=== PATIENT | female | born 1965 ===

== ENCOUNTER 2020-09-09 09:10 | Outpatient (CLI) | payer BC, SELFPAY ==
--- NOTE | 2020-09-09 09:13 | MM_ITS ---
WS: [id number] Since BILATERAL DIGITAL SCREENING MAMMOGRAPHY WITH CAD CLINICAL INFORMATION: SCREENING HISTORY: Screening mammogram. No current complaints. COMPARISON: TECHNIQUE: Bilateral CC and MLO views. FINDINGS: Scattered fibroglandular densities bilaterally. Pleomorphic calcifications middle third outer left br east adjacent to the biopsy marker. Calcifications have increased in number compared to 2019. Recomme nd additional spot magnification views for better detail. Prior biopsy demonstrated papilloma. No other significant changes. Right breast is unchanged in appearance. MM/[place] [id number] IMPRESSION: BI-RADS: 0-Incomplete: Need additional imaging evaluation FOLLOW UP: Need Additional Imaging
== END 2020-09-09 09:11 | disposition home or self-care (01) ==
LOC: RADSHAW 09:12
PROVIDERS: PCP Internal Medicine; Visit Provider Internal Medicine
DX: Z12.31 Encounter for screening mammogram for malignant neoplasm of breast (principal)
CPT/HCPCS: 77067

== ENCOUNTER 2020-09-29 09:42 | Outpatient (CLI) | payer BC, SELFPAY ==
--- NOTE | 2020-09-29 09:49 | MM_ITS ---
WS: [id number] LEFT DIGITAL MAMMOGRAPHY WITH CAD CLINICAL INFORMATION: INCONCLUSIVE MAMMO COMPARISON: September 09, 2020 TECHNIQUE: 3 views of the left breast were obtained. FINDINGS: Scattered fibroglandular densities of the left breast. Again seen are the pleomorphic calcifications in the middle third outer left breast adjacent to the biopsy marker. Calcifications increased since 2 019. Significant increase in the heterogeneous calcifications adjacent to the biopsy cavity. These garcia ve a suspicious appearance and increased since 2019. Recommend further evaluation with stereotactic guided biopsy.. MM/[place] [id number] IMPRESSION: BI-RADS: 4-Suspicious Finding-Biopsy Should Be Considered FOLLOW UP: Stereotactic Biopsy Recommended Increase in the heterogeneous calcifications adjacent the biopsy cavity since 2 019. These are indeterminant and Recommend further evaluation with stereotactic guided biopsy.
== END 2020-09-29 09:43 | disposition home or self-care (01) ==
LOC: RADSHAW 09:44
PROVIDERS: PCP Internal Medicine; Visit Provider Internal Medicine
DX: R92.2 Inconclusive mammogram (principal); R92.1 Mammographic calcification found on diagnostic imaging of breast
CPT/HCPCS: 77065

== ENCOUNTER 2020-10-14 11:57 | Outpatient (CLI) | payer BC, SELFPAY ==
--- NOTE | 2020-10-14 12:01 | MM_ITS ---
WS: [id number] STEREOTACTIC LEFT BREAST BIOPSY WITH VACUUM ASSISTANCE HISTORY: INCONCLUSIVE MAMMOGRAM, calcifications and soft tissue thickening. COMPARISON: 09/29/2020, 09/09/2020 and 12/25/2018 Procedure, risks and complications were explained to the patient. Medications and prior radiographs a re reviewed. LEFT breast calcifications and soft tissue thickening are located. Calcifications are targeted in the craniocaudal projection. The skin is cleansed with ChloraPrep and anesthetized with 1% buffered lido keshawn. Deeper soft tissues anesthetized with a combination of lidocaine and epinephrine. Small dermat ome is made. Needle advanced into the LEFT breast. Stereotactic imaging reveals appropriate positioni ng adjacent calcifications. Multiple vacuum-assisted core biopsies are obtained. No complications wer e encountered. Post biopsy specimen radiograph reveals numerous calcifications. Biopsy clip is placed in the cavity. Post imaging reveals good placement of the clip. No migration. Pressures held for approximately 15 minutes. No bleeding. Dressing applied. Patient discharged with n o complications. There is no bleeding. With any questions or complications patient is to return. MM/MM post biopsy [id number] IMPRESSION: 1. Uncomplicated LEFT breast stereotactic biopsy. 2. Specimen contains numerous calcifications. Pathology: Intraductal papilloma. No invasive carcinoma. RECOMMENDATION: Recommend surgical evaluation and excision. Excision recommende d because of the increased soft tissue and the multiple calcifications.
--- NOTE | 2020-10-14 12:01 | MM_ITS ---
WS: [id number] STEREOTACTIC LEFT BREAST BIOPSY WITH VACUUM ASSISTANCE HISTORY: INCONCLUSIVE MAMMOGRAM, calcifications and soft tissue thickening. COMPARISON: 09/29/2020, 09/09/2020 and 12/25/2018 Procedure, risks and complications were explained to the patient. Medications and prior radiographs a re reviewed. LEFT breast calcifications and soft tissue thickening are located. Calcifications are targeted in the craniocaudal projection. The skin is cleansed with ChloraPrep and anesthetized with 1% buffered lido keshawn. Deeper soft tissues anesthetized with a combination of lidocaine and epinephrine. Small dermat ome is made. Needle advanced into the LEFT breast. Stereotactic imaging reveals appropriate positioni ng adjacent calcifications. Multiple vacuum-assisted core biopsies are obtained. No complications wer e encountered. Post biopsy specimen radiograph reveals numerous calcifications. Biopsy clip is placed in the cavity. Post imaging reveals good placement of the clip. No migration. Pressures held for approximately 15 minutes. No bleeding. Dressing applied. Patient discharged with n o complications. There is no bleeding. With any questions or complications patient is to return. MM/MM biopsy [place] vac assist [id number] IMPRESSION: 1. Uncomplicated LEFT breast stereotactic biopsy. 2. Specimen contains numerous calcifications. Pathology: Intraductal papilloma. No invasive carcinoma. RECOMMENDATION: Recommend surgical evaluation and excision. Excision recommende d because of the increased soft tissue and the multiple calcifications.
--- NOTE | 2020-10-14 12:01 | MM_ITS ---
WS: [id number] STEREOTACTIC LEFT BREAST BIOPSY WITH VACUUM ASSISTANCE HISTORY: INCONCLUSIVE MAMMOGRAM, calcifications and soft tissue thickening. COMPARISON: 09/29/2020, 09/09/2020 and 12/25/2018 Procedure, risks and complications were explained to the patient. Medications and prior radiographs a re reviewed. LEFT breast calcifications and soft tissue thickening are located. Calcifications are targeted in the craniocaudal projection. The skin is cleansed with ChloraPrep and anesthetized with 1% buffered lido keshawn. Deeper soft tissues anesthetized with a combination of lidocaine and epinephrine. Small dermat ome is made. Needle advanced into the LEFT breast. Stereotactic imaging reveals appropriate positioni ng adjacent calcifications. Multiple vacuum-assisted core biopsies are obtained. No complications wer e encountered. Post biopsy specimen radiograph reveals numerous calcifications. Biopsy clip is placed in the cavity. Post imaging reveals good placement of the clip. No migration. Pressures held for approximately 15 minutes. No bleeding. Dressing applied. Patient discharged with n o complications. There is no bleeding. With any questions or complications patient is to return. MM/MM surgical specimen LT IMPRESSION: 1. Uncomplicated LEFT breast stereotactic biopsy. 2. Specimen contains numerous calcifications. Pathology: Intraductal papilloma. No invasive carcinoma. RECOMMENDATION: Recommend surgical evaluation and excision. Excision recommende d because of the increased soft tissue and the multiple calcifications.
[2020-10-14 13:06] LABS: INR 0.89 (0.8-1.2)
== END 2020-10-14 11:58 | disposition home or self-care (01) ==
LOC: RADSHAW 11:59
PROVIDERS: PCP Internal Medicine; Visit Provider Family Medicine
DX: R92.2 Inconclusive mammogram (principal)
CPT/HCPCS: 19081; 77065; 85610; 88305; J7050